=== PATIENT | female | born 1950 | race Caucasian/White ===

== ENCOUNTER 2016-11-24 17:11 | Inpatient (IN) | payer OTHER ==
[~2016-11-24] VITALS: Ht 162.6 cm; Wt 74.0 kg
[~2016-11-24 17:11] MED LIST: CARAFATE1 GM PO; DEBROX15 ML BOTH EARS; PREDNISONE20 MG PO; PRILOSEC20 MG PO; PROAIR HFA8.5 GM IH; REGLAN10 MG PO
[2016-11-24 18:23] LABS: CARBON DIOXIDE (BICARBONATE) 33.5 MEQ/L (20-31)
[2016-11-24 18:32] LABS: HEMATOCRIT 36.7 % (36.0-46.0); MCH 20.7 PG (29.0-34.0); MCHC 30.2 G/DL (30.0-36.0); MCV 68.5 FL (83-99); MEAN PLAT.VOLUME 11.1 uM^3 (9.5-12.4); PLATELET COUNT 246 K/uL (156-360); RBC DIS.WIDTH-CV 15.8 % (11.8-14.6); RBC DIS.WIDTH-SD 37.9 % (39-53); RED BLOOD COUNT 5.36 M/uL (3.80-5.20); WHITE BLOOD COUNT 15.2 K/uL (4.1-10.2)
[2016-11-24 18:37] LABS: CHLORIDE 103 mEq/L (99-109); POTASSIUM 4.1 mEq/L (3.7-5.4); SODIUM 139 mEq/L (136-147)
[2016-11-24 18:39] LABS: GLUCOSE 99 mg/dL (70-99)
[2016-11-24 18:40] LABS: ANION GAP 9 MEQ/L (2-14)
[2016-11-24 18:42] LABS: GFR ESTIMATE (CALCULATED) > 59 mL/min/
[2016-11-24 18:43] LABS: UREA NITROGEN (BUN) 16 mg/dL (9-23)
[2016-11-24 18:44] LABS: TROP-I INTERPRETATION NEGATIVE; TROPONIN-I < 0.01 ng/mL (0.0-0.30)
[2016-11-24 19:06] LABS: INFLUENZA A VIRAL ANTIGEN NEGATIVE; INFLUENZA B VIRAL ANTIGEN NEGATIVE
[2016-11-24] MEDS ORDERED: DUONEB 2.5-0.5 M3 ML PEP (19:54)
[2016-11-24] MEDS ORDERED: ADVIL200 MG PO (19:55)
[2016-11-24] MEDS ORDERED: HARVONI 90-4001 EACH PO (19:55)
[2016-11-25 00:57] LABS: TROP-I INTERPRETATION NEGATIVE; TROPONIN-I < 0.01 ng/mL (0.0-0.30)
[2016-11-25 04:23] VITALS: BP 128/79
[2016-11-25 07:26] LABS: HEMATOCRIT 36.1 % (36.0-46.0); MCH 20.5 PG (29.0-34.0); MCHC 29.9 G/DL (30.0-36.0); MCV 68.5 FL (83-99); MEAN PLAT.VOLUME 10.9 uM^3 (9.5-12.4); PLATELET COUNT 278 K/uL (156-360); RBC DIS.WIDTH-CV 15.9 % (11.8-14.6); RBC DIS.WIDTH-SD 38.5 % (39-53); RED BLOOD COUNT 5.27 M/uL (3.80-5.20); WHITE BLOOD COUNT 14.2 K/uL (4.1-10.2)
[2016-11-25 07:33] LABS: ALKALINE PHOSPHATASE 87 IU/L (3-129); ANION GAP 9 MEQ/L (2-14); CHLORIDE 102 MEQ/L (99-109); GFR ESTIMATE (CALCULATED) > 59 mL/min/; GLUCOSE 148 mg/dL (70-99); POTASSIUM 4.5 MEQ/L (3.7-5.4); SAMPLE HEMOLYSIS CHECK 0; SAMPLE ICTERIC CHECK 0; SAMPLE LIPEMIA CHECK 0; SODIUM 139 MEQ/L (136-147); TOTAL BILIRUBIN 0.4 MG/DL (0.0-1.0); UREA NITROGEN (BUN) 15 mg/dL (9-23)
[2016-11-25 07:37] LABS: TROP-I INTERPRETATION NEGATIVE; TROPONIN-I < 0.01 ng/mL (0.0-0.30)
[2016-11-25 08:45] VITALS: BP 123/75
[2016-11-25 12:08] VITALS: BP 119/72
[2016-11-25 15:48] VITALS: BP 122/74
[2016-11-25 20:37] VITALS: BP 133/80
[2016-11-25 23:50] VITALS: BP 138/76
[2016-11-26 04:16] VITALS: BP 143/84
[2016-11-26 07:30] VITALS: BP 165/87
[2016-11-26 11:57] VITALS: BP 130/66
[2016-11-26 16:21] VITALS: BP 136/70
[2016-11-26 19:00] VITALS: BP 143/75
[2016-11-27 00:01] VITALS: BP 153/96
[2016-11-27 04:35] VITALS: BP 144/79
[2016-11-27 07:23] LABS: EOSINOPHIL (%) 0 % (0-5); HEMATOCRIT 34.1 % (36.0-46.0); IMMATURE GRANULOCYTE (%) 1.7 % (0.0-0.7); IMMATURE GRANULOCYTE COUNT 0.3 K/uL; INSTRUMENT ABS NEUTROPHIL CT 15.8 K/uL; MCH 20.6 PG (29.0-34.0); MCHC 30.2 G/DL (30.0-36.0); MCV 68.3 FL (83-99); MEAN PLAT.VOLUME 11.2 uM^3 (9.5-12.4); MONOCYTE (%) 3.9 % (3-12); MONOCYTE COUNT 0.7 K/uL (0-0.8); NEUTROPHIL (%) 83.8 % (45-76); NEUTROPHIL COUNT 15.8 K/uL (1.8-6.4); NRBC (%) 0.1 /100 WBC (0-0); PLATELET COUNT 281 K/uL (156-360); RBC DIS.WIDTH-SD 38.4 % (39-53); RED BLOOD COUNT 4.99 M/uL (3.80-5.20)
[2016-11-27 07:25] VITALS: BP 148/77
[2016-11-27 07:26] LABS: WHITE BLOOD COUNT 18.9 K/uL (4.1-10.2)
[2016-11-27 07:33] LABS: ANION GAP 8 MEQ/L (2-14); CHLORIDE 102 MEQ/L (99-109); GFR ESTIMATE (CALCULATED) > 59 mL/min/; GLUCOSE 113 mg/dL (70-99); MAGNESIUM 2.3 mg/dl (1.3-2.7); POTASSIUM 4.6 MEQ/L (3.7-5.4); SAMPLE HEMOLYSIS CHECK 0; SAMPLE ICTERIC CHECK 0; SAMPLE LIPEMIA CHECK 0; SODIUM 140 MEQ/L (136-147); UREA NITROGEN (BUN) 20 mg/dL (9-23)
[2016-11-27] MEDS ORDERED: PREDNISONE10 MG PO (09:04)
[2016-11-27] MEDS ORDERED: ADVAIR HFA120 INHALA IH (09:04)
[2016-11-27] MEDS ORDERED: SPIRIVA RESPIMAT4 GM IH (09:04)
== END 2016-11-27 10:43 | disposition home or self-care (01) | DRG 192 ==
LOC: EME 17:11 → EDOF 20:26 → 5WEST 21:53
PROVIDERS: Emergency Medicine; Internal Medicine
DX: J44.1 Chronic obstructive pulmonary disease with (acute) exacerbation (principal); D50.9 Iron deficiency anemia, unspecified; K21.9 Gastro-esophageal reflux disease without esophagitis; B18.2 Chronic viral hepatitis C; J45.909 Unspecified asthma, uncomplicated; D72.829 Elevated white blood cell count, unspecified; T38.0X5A Adverse effect of glucocorticoids and synthetic analogues, initial encounter; Z87.891 Personal history of nicotine dependence
CPT/HCPCS: 71010; 71020; 80048; 80053; 82728; 82803; 83605; 83735; 83880; 84484; 85025; 85027; 87040; 87502; 93005; 94640; 94640 76; 94799; 99202; 99281; 99285; G0378; J1100; J1644; J2270; J2405; J2920; J2930

== ENCOUNTER 2017-06-05 14:19 | Emergency (ER) | payer OTHER ==
[~2017-06-05] VITALS: Ht 162.6 cm; Wt 77.5 kg
[~2017-06-05 14:19] MED LIST changes: +ADVAIR HFA120 INHALA IH; +ADVIL200 MG PO; +DUONEB 2.5-0.5 M3 ML PEP; +HARVONI 90-4001 EACH PO; +PREDNISONE10 MG PO; +SPIRIVA RESPIMAT4 GM IH
[2017-06-05 18:12] VITALS: BP 164/80
[2017-06-05] MEDS ORDERED: ULTRAM50 MG PO (19:10)
[2017-06-05] MEDS ORDERED: NAPROSYN500 MG PO (19:10)
== END 2017-06-05 19:38 | disposition home or self-care (01) ==
LOC: EME 14:19
DX: R60.0 Localized edema (principal); J44.9 Chronic obstructive pulmonary disease, unspecified; Z87.891 Personal history of nicotine dependence
CPT/HCPCS: 73610; 93971; 99281; 99284